=== PATIENT | female | born 1955 | race Hispanic/Latino ===

== ENCOUNTER → 2019-02-13 | Outpatient (CLI) | payer OTHER | END | disposition home or self-care (01) | LOC: RAH 10:51 | DX: N60.02 Solitary cyst of left breast (principal); N60.01 Solitary cyst of right breast | CPT/HCPCS: 76641 ==

== ENCOUNTER → 2019-03-19 | Outpatient (CLI) | payer OTHER | END | disposition home or self-care (01) | LOC: RAH 09:36 | PROVIDERS: ATTEND Student in an Organized Health Care Education/Training Program | DX: K42.9 Umbilical hernia without obstruction or gangrene (principal); K59.00 Constipation, unspecified; R91.1 Solitary pulmonary nodule; N28.1 Cyst of kidney, acquired | CPT/HCPCS: 74176 ==

== ENCOUNTER → 2019-04-22 | Outpatient (CLI) | payer OTHER | END | disposition home or self-care (01) | LOC: RAH 11:15 | PROVIDERS: ATTEND Student in an Organized Health Care Education/Training Program | DX: R91.1 Solitary pulmonary nodule (principal); R07.9 Chest pain, unspecified | CPT/HCPCS: 71250 ==

== ENCOUNTER 2019-08-19 11:00 | Day surgery (SDC) | payer OTHER ==
[2019-08-14 12:00] LABS: BASOPHILS % (AUTO) 0.6 % (0.0-5.0); EOSINOPHILS % (AUTO) 3.8 % (0.0-8.0); HEMATOCRIT 36.5 % (36-48); LYMPHOCYTES % (AUTO) 30.2 % (21.0-51.0); MEAN CORPUSCULAR HEMOGLOBIN 32.2 pg (27.0-33.0); MEAN CORPUSCULAR HGB CONC 34.2 g/dL (32.0-36.0); MEAN CORPUSCULAR VOLUME 94.1 fL (79-99); MONOCYTES % (AUTO) 5.3 % (3.0-13.0); NEUTROPHILS % (AUTO) 59.9 % (40.0-77.0); PLATELET COUNT (AUTO) 240 K/uL (130-400); RED BLOOD CELL COUNT(AUTO) 3.88 MIL/uL (4.00-5.50); RED CELL DISTRIBUTION WIDTH 13.3 % (11.0-15.5); WHITE BLOOD COUNT (AUTO) 5.2 K/uL (4.8-10.8)
[2019-08-14 12:04] VITALS: BP 126/73
[2019-08-14 12:08] LABS: CREATININE 0.4 mg/dL (0.5-1.5); POTASSIUM 4.2 mmol/L (3.5-5.1)
[~2019-08-19] VITALS: Ht 154.9 cm; Wt 49.0 kg
[2019-08-19] VITALS (13 sets, daily range): BP systolic 130–159; BP diastolic 54–79
[~2019-08-19 11:00] MED LIST: AMLO1CAP15 PO; GLYB1.253 PO; METF-444 PO; PRAV10TA39 PO
[2019-08-19] MEDS ORDERED: SODIUM CHLORIDE 0.9% 1000ML 1,000 ML IV ONE (12:08)
[2019-08-19] MEDS: CEFAZOLIN SODIUM 1 GM VIAL ONE ×2 (12:24→13:58)
[2019-08-19] MEDS ORDERED: ONDANSETRON HCL 4 MG/2 ML VIAL ONE (13:33)
[2019-08-19] MEDS ORDERED: PROPOFOL 10 MG/ML 20ML VIAL IV ONE (13:33)
[2019-08-19] MEDS ORDERED: FENTANYL CITRATE PF 50 MCG/1 ML 2ML VIAL ONE ×2 (13:33→15:24)
[2019-08-19] MEDS ORDERED: DEXAMETHASONE SOD PHOSPHATE 10MG/ML 1ML VIAL ONE (13:33)
[2019-08-19] MEDS ORDERED: LIDOCAINE PF 2% 5ML ABBOJECT ONE (13:33)
[2019-08-19] MEDS ORDERED: ROCURONIUM 10MG/1ML SYR 10 MG/ML ML ONE (13:34)
[2019-08-19] MEDS ORDERED: EPHEDRINE SULFATE 50 MG/ML AMPULE ONE (14:02)
[2019-08-19] MEDS ORDERED: BUPIVACAINE/PF 0.5% 10ML VIAL ONE (14:09)
[2019-08-19] MEDS ORDERED: NEOSTIGMINE 5MG/5ML SYR IV ONE (14:54)
[2019-08-19] MEDS ORDERED: GLYCOPYRROLATE 1 MG/5 ML SYRINGE ONE (14:54)
[2019-08-19] MEDS ORDERED: MEPERIDINE-PF 25 MG/ML SYG ONE (15:35)
[2019-08-19] MEDS ORDERED: TRAMADOL HCL 50 MG TABLET ONE (16:39)
--- NOTE | 2019-08-19 17:15 | NUR ---
PT IS AAOX3, STATES MILD DISCOMFORT TO ABDOMEN S/P PROCEDURE. NO DISTRESS. INCISIONS TO ABDOMEN ARE D/I. PT STABLE. ABLE TO TOLERATED FLUIDS. PT REASSESS AFTER MEDICATED. STATES PAIN IMPROVED. PT ON ARRIVAL, HAS A LARGE PURPLE BRUISE SIZE OF ORANGE TO UPPER LEFT THIGH, WAS NOTICED BY PT BROTHER, PT STATES BRUISE WAS NOT THERE THIS MORNING, DOES NOT KNOW HOW SHE GOT BRUISE. INSTRUCTED TO PT TO KEEP AN EYE ON THE BRUISE AND SEE DOCTOR IF NESSARY. PT DRESSED, POST CARE INSTRUCTIONS GIVEN TO PT AND BROTHER , BOTH VERBALIZED UNDERSTANDING.
[2019-08-19] MEDS ORDERED: TRAMADOL HCL 50 MG TABLET PO ONE (17:50)
== END 2019-08-19 17:15 | disposition home or self-care (01) ==
LOC: DAH 11:00
PROVIDERS: ATTEND Student in an Organized Health Care Education/Training Program
DX: K43.9 Ventral hernia without obstruction or gangrene (principal); K42.9 Umbilical hernia without obstruction or gangrene; E10.9 Type 1 diabetes mellitus without complications; I10 Essential (primary) hypertension; E78.5 Hyperlipidemia, unspecified; Z88.1 Allergy status to other antibiotic agents; Z88.8 Allergy status to other drugs, medicaments and biological substances; Z98.890 Other specified postprocedural states; Z80.0 Family history of malignant neoplasm of digestive organs; Z79.899 Other long term (current) drug therapy; Z79.84 Long term (current) use of oral hypoglycemic drugs
CPT/HCPCS: 36415; 49652; 80048; 82948 ×2; 85025; 88302; 93005; A4213; A4215; A4221; A4222; A4223; A4600; A6206; A6260; C1769 ×3; G0168; J0690; J1100; J2001; J2175; J2405; J2704; J2710; J3010 ×2; J3490 ×3; J7030 ×2

== ENCOUNTER → 2020-02-09 | Outpatient (CLI) | payer OTHER | END | disposition home or self-care (01) | LOC: RAH 10:51 | PROVIDERS: ATTEND Student in an Organized Health Care Education/Training Program | DX: K46.9 Unspecified abdominal hernia without obstruction or gangrene (principal); R19.05 Periumbilic swelling, mass or lump ==

== ENCOUNTER → 2021-03-22 | Outpatient (CLI) | payer MEDICARE, OTHER ==
[~2021-03-22] VITALS: Ht 154.9 cm; Wt 47.9 kg
[2021-03-22 10:32] VITALS: BP 138/59
[2021-03-22 12:38] LABS: BASOPHILS % (AUTO) 0.6 % (0.0-5.0); EOSINOPHILS % (AUTO) 3.4 % (0.0-8.0); HEMATOCRIT 38.1 % (36-48); LYMPHOCYTES % (AUTO) 33.6 % (21.0-51.0); MEAN CORPUSCULAR HEMOGLOBIN 32.4 pg (27.0-33.0); MEAN CORPUSCULAR HGB CONC 33.3 g/dL (32.0-36.0); MEAN CORPUSCULAR VOLUME 97.2 fL (79-99); NEUTROPHILS % (AUTO) 57.2 % (40.0-77.0); PLATELET COUNT (AUTO) 273 K/uL (130-400); RED BLOOD CELL COUNT(AUTO) 3.92 MIL/uL (4.00-5.50); RED CELL DISTRIBUTION WIDTH 14.1 % (11.0-15.5)
[2021-03-22 12:51] LABS: APPEARANCE,URINE Clear (CLEAR); BILIRUBIN,URINE Negative (NEGATIVE); COLOR,URINE Yellow (YELLOW); GLUCOSE, URINE (UA) Negative (NEGATIVE); KETONES,URINE Trace mg/dL (NEGATIVE); LEUKOCYTE ESTERASE ,URINE Trace (NEGATIVE); NITRATE,URINE Negative (NEGATIVE); OCCULT BLOOD,URINE Negative (NEGATIVE); PROTEIN,URINE Negative (NEGATIVE)
[2021-03-22 12:52] LABS: PROTHROMBIN TIME 10.9 SEC (9.6-11.6)
[2021-03-22 12:54] LABS: CREATININE 0.5 mg/dL (0.5-1.5); POTASSIUM 4.2 mmol/L (3.5-5.1)
[2021-03-22 12:58] LABS: BACTERIA,URINE Rare /HPF (None Seen); RBC,URINE 0-1 /HPF (0-1); SQUAMOUS EPITHELIAL CELL,UR Rare /HPF (0-2); WBC,URINE 0-1 /HPF (0-1)
== END | disposition home or self-care (01) ==
LOC: DAH 10:00 → EDSTATUS 13:00
PROVIDERS: ATTEND Student in an Organized Health Care Education/Training Program
DX: Z01.818 Encounter for other preprocedural examination (principal); K43.2 Incisional hernia without obstruction or gangrene; Z20.822 Contact with and (suspected) exposure to COVID-19; I10 Essential (primary) hypertension; J44.9 Chronic obstructive pulmonary disease, unspecified; E78.5 Hyperlipidemia, unspecified; E11.9 Type 2 diabetes mellitus without complications; Z53.9 Procedure and treatment not carried out, unspecified reason; Z79.84 Long term (current) use of oral hypoglycemic drugs; Z79.899 Other long term (current) drug therapy; Z98.890 Other specified postprocedural states; Z82.49 Family history of ischemic heart disease and other diseases of the circulatory system; Z80.9 Family history of malignant neoplasm, unspecified; Z88.8 Allergy status to other drugs, medicaments and biological substances; Z43.9 Encounter for attention to unspecified artificial opening; Z79.01 Long term (current) use of anticoagulants
CPT/HCPCS: 36415; 71045; 80048; 81001; 85025; 85610; 85730; 87635; 93005; A6260; C9803

== ENCOUNTER 2021-05-03 10:12 | Day surgery (SDC) | payer MEDICARE ==
[2021-05-01 11:25] VITALS: BP 150/65
[2021-05-01 11:46] LABS: BASOPHILS % (AUTO) 0.6 % (0.0-5.0); EOSINOPHILS % (AUTO) 3.2 % (0.0-8.0); HEMATOCRIT 38.4 % (36-48); MEAN CORPUSCULAR HEMOGLOBIN 32.6 pg (27.0-33.0); MEAN CORPUSCULAR HGB CONC 33.6 g/dL (32.0-36.0); MONOCYTES % (AUTO) 4.6 % (3.0-13.0); NEUTROPHILS % (AUTO) 58.4 % (40.0-77.0); PLATELET COUNT (AUTO) 267 K/uL (130-400); RED BLOOD CELL COUNT(AUTO) 3.96 MIL/uL (4.00-5.50); RED CELL DISTRIBUTION WIDTH 13.4 % (11.0-15.5)
[2021-05-01 11:51] LABS: APPEARANCE,URINE Clear (CLEAR); BILIRUBIN,URINE Negative (NEGATIVE); COLOR,URINE Yellow (YELLOW); GLUCOSE, URINE (UA) Negative (NEGATIVE); KETONES,URINE Negative (NEGATIVE); LEUKOCYTE ESTERASE ,URINE Negative (NEGATIVE); NITRATE,URINE Negative (NEGATIVE); OCCULT BLOOD,URINE Negative (NEGATIVE); PH,URINE 6.5 (5.0-8.0); PROTEIN,URINE Negative (NEGATIVE); UROBILINOGEN,URINE 0.2 mg/dL (0.2-1.0)
[2021-05-01 12:19] LABS: INR 1.03 (0.85-1.15); PROTHROMBIN TIME 11.2 SEC (9.6-11.6)
[2021-05-01 12:20] LABS: PARTIAL THROMBOPLASTIN TIME 25.7 SEC (26.3-35.5)
[2021-05-01 16:02] LABS: CREATININE 0.5 mg/dL (0.5-1.5); POTASSIUM 3.9 mmol/L (3.5-5.1)
[~2021-05-03] VITALS: Ht 154.9 cm; Wt 48.1 kg
[2021-05-03] VITALS (20 sets, daily range): BP systolic 111–143; BP diastolic 46–66
[~2021-05-03 10:12] MED LIST changes: -METF-444 PO; +PHARMACY COMMUNICATION MISC SCH
[2021-05-03] MEDS ORDERED: CLINDAMYCIN IVPB 900MG/50ML 50 ML IV ONE (10:23)
[2021-05-03] MEDS: 0.9%NACL 1000ML 1,000 ML IV SCH ×3 (10:52→15:15)
[2021-05-03] MEDS ORDERED: DEXAMETHASONE SOD PHOSPHATE 10MG/ML 1ML VIAL ONE (10:58)
[2021-05-03] MEDS ORDERED: GLYCOPYRROLATE 1 MG/5 ML SYRINGE ONE (10:58)
[2021-05-03] MEDS ORDERED: LIDOCAINE PF 100MG/5ML (2%) SYRINGE 5ML ONE (10:58)
[2021-05-03] MEDS ORDERED: SUCCINYLCHOLINE 200MG/10ML SYR ONE (10:58)
[2021-05-03] MEDS ORDERED: MIDAZOLAM HCL 1 MG/ML 2ML VIAL ONE (10:59)
[2021-05-03] MEDS ORDERED: ROCURONIUM 10MG/1ML SYR 10 MG/ML ML ONE (10:59)
[2021-05-03] MEDS ORDERED: NEOSTIGMINE 5MG/5ML SYR IV ONE (10:59)
[2021-05-03] MEDS ORDERED: ONDANSETRON 4MG INJ ONE (10:59)
[2021-05-03] MEDS ORDERED: PROPOFOL 10 MG/ML 20ML VIAL IV ONE (10:59)
[2021-05-03] MEDS ORDERED: FENTANYL CITRATE PF 50 MCG/1 ML 5ML AMP IV ONE (11:00)
[2021-05-03] MEDS ORDERED: BUPIVACAINE/PF 0.5% 10ML VIAL ONE (12:54)
[2021-05-03] MEDS ORDERED: EPHEDRINE SULFATE 50 MG/ML AMPULE ONE (13:06)
[2021-05-03] MEDS ORDERED: MEPERIDINE-PF 25 MG/ML SYG ONE (15:44)
== END 2021-05-03 17:05 | disposition home or self-care (01) ==
LOC: DAH 10:12
PROVIDERS: ATTEND Student in an Organized Health Care Education/Training Program
DX: K43.9 Ventral hernia without obstruction or gangrene (principal); Z20.822 Contact with and (suspected) exposure to COVID-19; I10 Essential (primary) hypertension; E78.5 Hyperlipidemia, unspecified; E11.9 Type 2 diabetes mellitus without complications; Z98.890 Other specified postprocedural states; Z80.1 Family history of malignant neoplasm of trachea, bronchus and lung; Z80.0 Family history of malignant neoplasm of digestive organs; Z88.8 Allergy status to other drugs, medicaments and biological substances; Z79.01 Long term (current) use of anticoagulants; Z79.899 Other long term (current) drug therapy
CPT/HCPCS: 36415; 49652; 64488; 71045; 80048; 81003; 82948 ×2; 85025; 85610; 85730; 87635; 93005; A4215 ×2; A4221; A4222; A4223; A4335; A4554; A4649; A4663; A6260; C1769 ×2; C1781; C9803; G0168; J0330; J1100; J2001; J2175; J2250; J2405; J2704; J2710; J3010; J3490 ×4; J7030 ×2